=== PATIENT | male | born 1950 | race African-American/Black ===

== ENCOUNTER 2016-10-29 10:07 | Emergency (ER) | payer MEDICAID ==
[~2016-10-29] VITALS: Ht 175.3 cm; Wt 65.0 kg
[2016-10-29] MEDS ORDERED: HYDR12.529 PO (16:16)
[2016-10-29] MEDS ORDERED: LISI2.5T47 PO (16:16)
[2016-10-29] MEDS ORDERED: IBUPROFEN 400MG TABLET PO ONE (17:00)
[2016-10-29] MEDS ORDERED: ACETAMINOPHEN 325MG TABLET PO ONE (17:00)
[2016-10-29 17:46] VITALS: BP 158/78
== END 2016-10-29 17:51 | disposition home or self-care (01) ==
LOC: ER 13:47
DX: M54.9 Dorsalgia, unspecified (principal); G89.29 Other chronic pain; K40.90 Unilateral inguinal hernia, without obstruction or gangrene, not specified as recurrent; I10 Essential (primary) hypertension; G47.00 Insomnia, unspecified; R26.2 Difficulty in walking, not elsewhere classified; F12.10 Cannabis abuse, uncomplicated; F17.210 Nicotine dependence, cigarettes, uncomplicated
CPT/HCPCS: 99283

== ENCOUNTER 2021-01-01 11:27 | Emergency (ER) | payer BC, MEDICAID ==
[~2021-01-01] VITALS: Ht 175.3 cm; Wt 64.0 kg
[~2021-01-01 11:27] MED LIST: HYDR12.529 PO; LISI2.5T47 PO
[2021-01-01 12:13] LABS: HEMOGLOBIN. 15.4 g/dL (14.0-18.0); MEAN CORPUSCULAR HEMOGLOBIN 31.3 pg (28.0-32.0); MEAN CORPUSCULAR VOLUME 93.4 fL (80.0-94.0); MEAN PLATELET VOLUME 10.1 fl (7.4-10.4); PLATELET 145 x1000/uL (130-400); RED BLOOD CELL COUNT 4.92 mill/uL (4.7-6.1); RED CELL DISTRIBUTION WIDTH 15.3 % (11.6-14.6)
[2021-01-01 12:17] LABS: CHLORIDE 107 mEq/L (98-107)
[2021-01-01 12:21] LABS: ETHANOL BLOOD < 10 mg/dL
[2021-01-01 12:53] LABS: CLARITY URINE CLEAR (CLEAR); COLOR URINE DARK YELLOW (YELLOW); KETONES URINE TRACE (NEGATIVE); LEUKOCYTE ESTERASE URINE NEGATIVE (NEGATIVE); NITRITE URINE NEGATIVE (NEGATIVE); OCCULT BLOOD URINE NEGATIVE (NEGATIVE); PH URINE 5.5 (4.5-8.0); PROTEIN URINE NEGATIVE (NEGATIVE); SPECIFIC GRAVITY URINE 1.024 (1.005-1.030)
[2021-01-01 13:10] LABS: *BARBITURATES SCREEN URINE NEGATIVE (NEGATIVE); *BENZODIAZEPINES SCREEN URINE NEGATIVE (NEGATIVE)
[2021-01-01 13:11] LABS: *AMPHETAMINES SCREEN URINE NEGATIVE (NEGATIVE); *COCAINE SCREEN URINE NEGATIVE (NEGATIVE); CANNABINOID URINE SCREEN PRESUMTIVE POSITIVE (NEGATIVE); OPIATES URINE SCREEN NEGATIVE (NEGATIVE); PHENCYCLIDINE URINE SCREEN NEGATIVE (NEGATIVE)
[2021-01-01 13:20] LABS: METHADONE URINE SCREEN NEGATIVE (NEGATIVE)
[2021-01-01 13:41] LABS: PLATELET ESTIMATE NORMAL
[2021-01-01] MEDS ORDERED: HYDROCHLOROTHIAZIDE 12.5MG CAPSULE PO ONE (18:45)
[2021-01-01] MEDS ORDERED: HYDROCHLOROTHIAZIDE 25MG TABLET PO NR (19:02)
[2021-01-01 20:00] VITALS: BP 180/95
== END 2021-01-01 20:15 | disposition home or self-care (01) ==
LOC: ER 11:27
DX: I11.0 Hypertensive heart disease with heart failure (principal); I50.9 Heart failure, unspecified; F12.90 Cannabis use, unspecified, uncomplicated
CPT/HCPCS: 36415; 71045; 80053; 80305; 80320; 81003; 83880; 84484; 85025; 93005; 99285; G0480

== ENCOUNTER 2021-12-09 11:01 | Inpatient (IN) | payer BC ==
[~2021-12-09] VITALS: Ht 175.3 cm; Wt 52.2 kg
[2021-12-09 11:56] LABS: HEMATOCRIT. 37.4 % (42.0-52.0); HEMOGLOBIN. 12.7 g/dL (14.0-18.0); MEAN CORPUSCULAR HEMOGLOBIN 31.8 pg (28.0-32.0); MEAN CORPUSCULAR VOLUME 93.6 fL (80.0-94.0); MEAN PLATELET VOLUME 8.9 fl (7.4-10.4); PLATELET 119 x1000/uL (130-400)
[2021-12-09] MEDS ORDERED: IOHEXOL-350 100 ML BOTTLE ONE (12:06)
[2021-12-09 12:39] LABS: PLATELET ESTIMATE SLIGHTLY DECREASED
[2021-12-09 13:06] LABS: CHLORIDE 101 mEq/L (98-107)
[2021-12-09 13:15] LABS: ETHANOL BLOOD < 10 mg/dL
[2021-12-09] MEDS ORDERED: ASPIRIN 325MG EC TABLET PO ONE ×2 (13:15→15:00)
[2021-12-09] MEDS ORDERED: CLOPIDOGREL 75MG TABLET PO ONE ×2 (13:15→15:00)
[2021-12-09 16:00] VITALS: BP 186/86
[2021-12-09] MEDS ORDERED: ACETAMINOPHEN 325MG TABLET PO PRN ×2 (16:00)
[2021-12-09] MEDS ORDERED: MAGNESIUM/ALUMINUM HYDROXIDE/SIMETHICONE 30ML UDC PO PRN (16:00)
[2021-12-09] MEDS ORDERED: ONDANSETRON HCL 4MG/2ML INJ IV PRN (16:00)
[2021-12-09] MEDS: CLONIDINE 0.1MG TABLET PO PRN (16:24)
[2021-12-09] MEDS: ENOXAPARIN 40MG/0.4ML SYR SUBCUT SCH (19:02)
[2021-12-09 19:42] VITALS: BP 186/86
[2021-12-09 20:00] VITALS: BP 145/67
[2021-12-09] MEDS: DEXT 5%/0.45% NACL KCL 20MEQ/L 1,000 ML IV SCH (22:33)
[2021-12-09] MEDS: SODIUM CHLORIDE 0.9% INJ 3ML FLUSH IVF SCH (22:33)
[2021-12-10] VITALS: BP 134/68
[2021-12-10 04:00] VITALS: BP 132/48
[2021-12-10] MEDS: SODIUM CHLORIDE 0.9% INJ 3ML FLUSH IVF SCH ×3 (05:21→20:35)
[2021-12-10 08:00] VITALS: BP 164/84
[2021-12-10] MEDS ORDERED: PNEUMOCOCCAL 23-VAL P-SAC VAC 0.5 ML IM ONE (09:00)
[2021-12-10] MEDS ORDERED: INFLUENZA VACCINE 05/PF 0.5 ML SYRINGE IM ONE (09:00)
[2021-12-10] MEDS: CLONIDINE 0.1MG TABLET PO PRN (09:46)
[2021-12-10] MEDS: LISINOPRIL 2.5MG TABLET PO SCH (09:46)
[2021-12-10] MEDS: HYDROCHLOROTHIAZIDE 12.5MG CAPSULE PO SCH (09:47)
[2021-12-10] MEDS: DEXT 5%/0.45% NACL KCL 20MEQ/L 1,000 ML IV SCH ×2 (10:02→16:57)
[2021-12-10 12:00] VITALS: BP 132/72
[2021-12-10] MEDS: ASPIRIN 81MG EC TABLET PO SCH (14:22)
[2021-12-10 16:00] VITALS: BP 142/82
[2021-12-10] MEDS: ENOXAPARIN 40MG/0.4ML SYR SUBCUT SCH (16:53)
[2021-12-10 17:21] LABS: *AMPHETAMINES SCREEN URINE NEGATIVE (NEGATIVE); *BARBITURATES SCREEN URINE NEGATIVE (NEGATIVE); *BENZODIAZEPINES SCREEN URINE NEGATIVE (NEGATIVE); *COCAINE SCREEN URINE NEGATIVE (NEGATIVE); CANNABINOID URINE SCREEN PRESUMTIVE POSITIVE (NEGATIVE); METHADONE URINE SCREEN NEGATIVE (NEGATIVE); OPIATES URINE SCREEN NEGATIVE (NEGATIVE); PHENCYCLIDINE URINE SCREEN NEGATIVE (NEGATIVE)
[2021-12-10 17:24] LABS: CLARITY URINE CLEAR (CLEAR); COLOR URINE DARK YELLOW (YELLOW); PH URINE 6.5 (4.5-8.0); PROTEIN URINE NEGATIVE (NEGATIVE); SPECIFIC GRAVITY URINE 1.012 (1.005-1.030)
[2021-12-10 17:25] LABS: KETONES URINE NEGATIVE (NEGATIVE); LEUKOCYTE ESTERASE URINE NEGATIVE (NEGATIVE); NITRITE URINE NEGATIVE (NEGATIVE); OCCULT BLOOD URINE NEGATIVE (NEGATIVE); UROBILINOGEN URINE >8.0 E.U./dL (0.2-1.0)
[2021-12-10 20:00] VITALS: BP 144/86
[2021-12-10] MEDS: ATORVASTATIN CALCIUM 40MG TABLET PO SCH (20:35)
[2021-12-11] VITALS: BP 104/56
[2021-12-11 04:00] VITALS: BP 112/60
[2021-12-11] MEDS: DEXT 5%/0.45% NACL KCL 20MEQ/L 1,000 ML IV SCH (04:44)
[2021-12-11] MEDS: SODIUM CHLORIDE 0.9% INJ 3ML FLUSH IVF SCH ×2 (05:39→21:47)
[2021-12-11 07:15] LABS: BASOPHILS % 1.1 % (0.0-2.0); EOSINOPHILS % 1.5 % (0.0-5.0); HEMATOCRIT. 41.9 % (42.0-52.0); HEMOGLOBIN. 14.1 g/dL (14.0-18.0); LYMPHOCYTES % 34.8 % (20.0-50.0); MEAN CORPUSCULAR HEMOGLOBIN 31.8 pg (28.0-32.0); MEAN CORPUSCULAR VOLUME 94.5 fL (80.0-94.0); MEAN PLATELET VOLUME 9.2 fl (7.4-10.4); MONOCYTES % 12.8 % (2.0-8.0); NEUTROPHILS % 49.8 % (40.0-76.0); PLATELET 124 x1000/uL (130-400); RED BLOOD CELL COUNT 4.43 mill/uL (4.7-6.1); RED CELL DISTRIBUTION WIDTH 13.9 % (11.6-14.6)
[2021-12-11 08:00] VITALS: BP 144/97
[2021-12-11] MEDS: LISINOPRIL 2.5MG TABLET PO SCH (09:03)
[2021-12-11] MEDS: CLOPIDOGREL 75MG TABLET PO SCH (09:04)
[2021-12-11] MEDS: ASPIRIN 81MG EC TABLET PO SCH (09:05)
[2021-12-11] MEDS: HYDROCHLOROTHIAZIDE 12.5MG CAPSULE PO SCH (09:06)
[2021-12-11 10:14] LABS: CHLORIDE 101 mEq/L (98-107)
[2021-12-11 10:21] LABS: HDL CHOLESTEROL 27 mg/dL (40-59); LDL CHOLESTEROL 50 mg/dL (5-100)
[2021-12-11 12:00] VITALS: BP 149/75
[2021-12-11 16:00] VITALS: BP 168/90
[2021-12-11 20:17] VITALS: BP 177/81
[2021-12-11] MEDS: ATORVASTATIN CALCIUM 40MG TABLET PO SCH (21:47)
[2021-12-12 00:01] VITALS: BP 116/71
[2021-12-12 04:00] VITALS: BP 125/67
[2021-12-12] MEDS: SODIUM CHLORIDE 0.9% INJ 3ML FLUSH IVF SCH ×3 (05:00→20:43)
[2021-12-12 08:00] VITALS: BP 131/69
[2021-12-12] MEDS: CLOPIDOGREL 75MG TABLET PO SCH (09:26)
[2021-12-12] MEDS: ASPIRIN 81MG EC TABLET PO SCH (09:26)
[2021-12-12] MEDS: LISINOPRIL 2.5MG TABLET PO SCH (09:26)
[2021-12-12] MEDS: HYDROCHLOROTHIAZIDE 12.5MG CAPSULE PO SCH (09:50)
[2021-12-12 12:00] VITALS: BP 149/72
[2021-12-12 16:00] VITALS: BP 151/86
[2021-12-12] MEDS: ENOXAPARIN 40MG/0.4ML SYR SUBCUT SCH ×2 (16:00→17:18)
[2021-12-12 20:00] VITALS: BP 131/71
[2021-12-12] MEDS: ATORVASTATIN CALCIUM 40MG TABLET PO SCH (20:43)
[2021-12-13 00:13] VITALS: BP 121/76
[2021-12-13 04:00] VITALS: BP 103/59
[2021-12-13] MEDS: SODIUM CHLORIDE 0.9% INJ 3ML FLUSH IVF SCH ×2 (05:40→13:10)
[2021-12-13 08:00] VITALS: BP 144/84
[2021-12-13] MEDS: ASPIRIN 81MG EC TABLET PO SCH (08:37)
[2021-12-13] MEDS: HYDROCHLOROTHIAZIDE 12.5MG CAPSULE PO SCH (08:37)
[2021-12-13] MEDS: LISINOPRIL 2.5MG TABLET PO SCH (08:37)
[2021-12-13] MEDS: CLOPIDOGREL 75MG TABLET PO SCH (08:37)
[2021-12-13 12:00] VITALS: BP 173/90
[2021-12-13 16:00] VITALS: BP 124/71
[2021-12-13] MEDS: ENOXAPARIN 40MG/0.4ML SYR SUBCUT SCH (16:42)
[2021-12-13 20:00] VITALS: BP 126/78
[2021-12-13] MEDS: ATORVASTATIN CALCIUM 40MG TABLET PO SCH (20:27)
[2021-12-14] VITALS: BP 106/61
[2021-12-14 04:00] VITALS: BP 118/73
[2021-12-14] MEDS: SODIUM CHLORIDE 0.9% INJ 3ML FLUSH IVF SCH ×4 (04:21→21:01)
[2021-12-14 08:00] VITALS: BP 134/82
[2021-12-14] MEDS: ASPIRIN 81MG EC TABLET PO SCH (08:47)
[2021-12-14] MEDS: CLOPIDOGREL 75MG TABLET PO SCH (08:47)
[2021-12-14] MEDS: THIAMINE HCL 100MG TABLET PO SCH (08:47)
[2021-12-14] MEDS: MULTIVITAMINS,THER W-MINERALS TABLET PO SCH (08:47)
[2021-12-14] MEDS: LISINOPRIL 2.5MG TABLET PO SCH (08:47)
[2021-12-14] MEDS: HYDROCHLOROTHIAZIDE 12.5MG CAPSULE PO SCH (08:47)
[2021-12-14] MEDS: FOLIC ACID 1MG TABLET PO SCH (08:47)
[2021-12-14 12:00] VITALS: BP 134/75
[2021-12-14 16:00] VITALS: BP 139/85
[2021-12-14] MEDS: ENOXAPARIN 40MG/0.4ML SYR SUBCUT SCH (16:04)
[2021-12-14 20:00] VITALS: BP 132/80
[2021-12-14] MEDS: ATORVASTATIN CALCIUM 40MG TABLET PO SCH (21:03)
[2021-12-15] VITALS: BP 109/59
[2021-12-15 04:00] VITALS: BP 126/59
[2021-12-15] MEDS: SODIUM CHLORIDE 0.9% INJ 3ML FLUSH IVF SCH ×3 (05:47→20:52)
[2021-12-15] MEDS: MULTIVITAMINS,THER W-MINERALS TABLET PO SCH (08:23)
[2021-12-15] MEDS: THIAMINE HCL 100MG TABLET PO SCH (08:23)
[2021-12-15] MEDS: DOCUSATE SODIUM 100MG CAPSULE PO PRN ×2 (08:23→15:41)
[2021-12-15] MEDS: CLOPIDOGREL 75MG TABLET PO SCH (08:23)
[2021-12-15] MEDS: FOLIC ACID 1MG TABLET PO SCH (08:24)
[2021-12-15] MEDS: LISINOPRIL 2.5MG TABLET PO SCH (08:24)
[2021-12-15] MEDS: HYDROCHLOROTHIAZIDE 12.5MG CAPSULE PO SCH (08:24)
[2021-12-15] MEDS: ASPIRIN 81MG EC TABLET PO SCH (08:30)
[2021-12-15 12:00] VITALS: BP 149/79
[2021-12-15] MEDS: ENOXAPARIN 40MG/0.4ML SYR SUBCUT SCH (15:41)
[2021-12-15 16:00] VITALS: BP 147/85
[2021-12-15] MEDS ORDERED: LACTULOSE 20G/30ML UDC PO NR (16:00)
[2021-12-15 19:20] VITALS: BP 131/68
[2021-12-15 20:13] VITALS: BP 131/68
[2021-12-15] MEDS: ATORVASTATIN CALCIUM 40MG TABLET PO SCH (20:52)
[2021-12-15] MEDS ORDERED: LACTULOSE 20G/30ML UDC PO SCH (22:00)
== END 2021-12-15 22:07 | DRG 65 ==
LOC: ER 12:36 → 7WST 13:16 → EDBEDREQTM 13:25 → EDBEDREQ 13:25 → EDBEDREQSVC 13:25 → ENRESERV 14:38
PROVIDERS: ADMIT Internal Medicine; ATTEND Internal Medicine
DX: I63.9 Cerebral infarction, unspecified (principal); E44.0 Moderate protein-calorie malnutrition; Z68.1 Body mass index [BMI] 19.9 or less, adult; I16.0 Hypertensive urgency; F17.210 Nicotine dependence, cigarettes, uncomplicated; I65.21 Occlusion and stenosis of right carotid artery; F10.20 Alcohol dependence, uncomplicated; I10 Essential (primary) hypertension; R29.706 NIHSS score 6; Z20.822 Contact with and (suspected) exposure to COVID-19; R63.6 Underweight
CPT/HCPCS: 36415; 70496; 70498; 70551; 71045; 80048; 80053; 80061; 80305; 80320; 81003; 84484; 85025; 87426; 92610; 93005; 97162; 99291; J1650; Q9967; G0480